=== PATIENT | female | born 1995 | race Caucasian/White ===

== ENCOUNTER 2020-06-24 16:54 | Emergency (ER) | payer MEDICAID ==
[~2020-06-24] VITALS: Ht 154.9 cm; Wt 56.0 kg
[2020-06-24 18:39] VITALS: BP 101/62
== END 2020-06-24 18:40 | disposition home or self-care (01) ==
LOC: ER 16:54
DX: K43.9 Ventral hernia without obstruction or gangrene (principal)
CPT/HCPCS: 99281

== ENCOUNTER 2021-06-10 02:01 | Emergency (ER) | payer SELFPAY ==
[~2021-06-10] VITALS: Ht 162.6 cm; Wt 64.0 kg
[2021-06-10 03:20] LABS: BASOPHILS % 0.3 % (0.0-2.0); CHLORIDE 112 mEq/L (98-107); EOSINOPHILS % 0.8 % (0.0-5.0); HEMATOCRIT. 39.2 % (36.0-48.0); HEMOGLOBIN. 13.1 g/dL (12.0-16.0); LYMPHOCYTES % 31.9 % (20.0-50.0); MEAN CORPUSCULAR HEMOGLOBIN 30.9 pg (28.0-32.0); MEAN CORPUSCULAR VOLUME 92.6 fL (81.0-99.0); MEAN PLATELET VOLUME 8.7 fl (7.4-10.4); MONOCYTES % 7.9 % (2.0-8.0); NEUTROPHILS % 59.1 % (40.0-76.0); PLATELET 188 x1000/uL (130-400); RED BLOOD CELL COUNT 4.23 mill/uL (4.2-5.4); RED CELL DISTRIBUTION WIDTH 13.1 % (11.6-14.6)
[2021-06-10 03:24] LABS: ETHANOL BLOOD 261 mg/dL
[2021-06-10 05:05] LABS: CLARITY URINE CLEAR (CLEAR); COLOR URINE YELLOW (YELLOW); KETONES URINE NEGATIVE (NEGATIVE); LEUKOCYTE ESTERASE URINE NEGATIVE (NEGATIVE); NITRITE URINE NEGATIVE (NEGATIVE); OCCULT BLOOD URINE NEGATIVE (NEGATIVE); PROTEIN URINE NEGATIVE (NEGATIVE); SPECIFIC GRAVITY URINE 1.011 (1.005-1.030); UROBILINOGEN URINE 0.2 E.U./dL (0.2-1.0)
[2021-06-10 05:24] LABS: *AMPHETAMINES SCREEN URINE NEGATIVE (NEGATIVE); *BARBITURATES SCREEN URINE NEGATIVE (NEGATIVE); *COCAINE SCREEN URINE NEGATIVE (NEGATIVE); METHADONE URINE SCREEN NEGATIVE (NEGATIVE)
[2021-06-10 05:25] LABS: *BENZODIAZEPINES SCREEN URINE NEGATIVE (NEGATIVE); OPIATES URINE SCREEN NEGATIVE (NEGATIVE); PHENCYCLIDINE URINE SCREEN NEGATIVE (NEGATIVE)
[2021-06-10 05:41] LABS: CANNABINOID URINE SCREEN PRESUMTIVE POSITIVE (NEGATIVE)
[2021-06-10 06:00] VITALS: BP 116/57
== END 2021-06-10 06:19 | disposition home or self-care (01) ==
LOC: ER 02:01
DX: F10.129 Alcohol abuse with intoxication, unspecified (principal); Y90.8 Blood alcohol level of 240 mg/100 ml or more
CPT/HCPCS: 36415; 80053; 80305; 80320; 81003; 85025; 99283; G0480

== ENCOUNTER 2022-07-26 23:54 | Emergency (ER) | payer OTHER ==
[~2022-07-26] VITALS: Ht 154.9 cm; Wt 57.0 kg
[2022-07-27 01:30] VITALS: BP 115/73
[2022-07-27] MEDS ORDERED: KETOROLAC 30MG/ML VIAL IM ONE (01:30)
[2022-07-27] MEDS ORDERED: IBUP-2029 MT (04:56)
== END 2022-07-27 05:42 | disposition home or self-care (01) ==
LOC: ER 23:54
DX: S16.1XXA Strain of muscle, fascia and tendon at neck level, initial encounter (principal); S20.219A Contusion of unspecified front wall of thorax, initial encounter; F41.9 Anxiety disorder, unspecified; V49.49XA Driver injured in collision with other motor vehicles in traffic accident, initial encounter; Y93.89 Activity, other specified; Y92.89 Other specified places as the place of occurrence of the external cause; Y99.8 Other external cause status
CPT/HCPCS: 71045; 72125; 81025; 96372; 99285; J1885; Z7610